=== PATIENT | male | born 1970 | race Caucasian/White ===

== ENCOUNTER → 2023-02-03 | Outpatient (CLI) | payer SELFPAY ==
--- NOTE | 2023-02-03 09:49 | ECHOD_ITS ---
Reason For Study: WHEEZING Procedure This was a 2D Doppler, Color Flow transthoracic echocardiogram. Exam performed in department. Left Ventricle Normal LV size. Mild concentric left ventricular hypertrophy. Left ventricular systolic function is normal. The estimated ejection fraction is 60 %. No regional wall motion abnormalities noted. Right Ventricle Normal RV size. Normal systolic function. Atria Normal left atrium. Normal right atrium. Mitral Valve Normal mitral valve. Tricuspid Valve Normal tricuspid valve. Mild tricuspid valve insufficiency. Pulmonary artery systolic pressure is 26 mmHg. Aortic Valve Normal aortic valve. Pulmonic Valve Normal pulmonic valve. Great Vessels Normal aortic root. The pulmonary artery is normal size. Normal inferior vena cava. Pericardium/Pleural No pericardial effusion. MMode/2D Measurements & Calculations LVIDd: 4.6 cm IVSd: 1.3 cm Ao root diam: 3.4 cm LVIDs: 3.3 cm LVPWd: 1.2 cm RVDd: 3.7 cm FS: 28.8 % LAV(MOD-bp): 49.4 ml LVAd ap4: 36.9 cm2 SV(MOD-sp4): 70.8 ml LAV(MOD-bp) Indexed: 23.0 ml/m2 LVLd ap4: 9.4 cm LAV(MOD-sp2): 49.4 ml EDV(MOD-sp4): 122.0 ml LAV(MOD-sp4): 49.1 ml EDV(sp4-el): 123.6 ml LVAs ap4: 21.3 cm2 LVLs ap4: 7.8 cm ESV(MOD-sp4): 51.2 ml ESV(sp4-el): 49.3 ml EF(MOD-sp4): 58.1 % EF(sp4-el): 60.1 % SV(sp4-el): 74.3 ml LA A4 area: 18.2 cm2 LA dimension(2D): 3.2 cm RA A4 area: 18.1 cm2 Time Measurements MV dec time: 0.22 sec Doppler Measurements & Calculations MV E max bon: 69.6 cm/sec Lat Peak E' Bon: 10.9 cm/sec Med Peak E' Bon: 10.3 cm/sec MV A max bon: 62.2 cm/sec E/E' lat: 6.4 E/E' med: 6.8 MV E/A: 1.1 Ao V2 max: 118.6 cm/sec LV V1 max: 98.7 cm/sec PA V2 max: 96.1 cm/sec Ao max P.6 mmHg LV V1 max P.9 mmHg TR max bon: 234.6 cm/sec TR max P.0 mmHg ECHO/Echo Complete Interpretation Summary Normal LV size. Left ventricular systolic function is normal. The estimated ejection fraction is 60 %. Mild concentric left ventricular hypertrophy. Pulmonary artery systolic pressure is 26 mmHg. Ordering Physician: Sri Wagner Referring Physician: Sri Wagner Performed By: Svetlana Serna RDCS
== END | disposition home or self-care (01) ==
PROVIDERS: PCP Nurse Practitioner Family; Referring Provider Nurse Practitioner Family; Visit Provider Nurse Practitioner Family
DX: R06.2 Wheezing (principal); I10 Essential (primary) hypertension
CPT/HCPCS: 93306

== ENCOUNTER 2023-03-08 08:25 | Emergency (ER) | payer OTHER, SELFPAY ==
[2023-03-08 08:26] VITALS: BP 211/138; PULSE 67; RESP 16; TEMP 36.1; O2SAT 96; BMI 32.9
--- NOTE | 2023-03-08 08:33 | EKG12_ITS ---
Test Reason : HTN Blood Pressure : / mmHG Vent. Rate : 056 BPM Atrial Rate : 056 BPM P-R Int : 154 ms QRS Dur : 102 ms QT Int : 446 ms P-R-T Axes : 035 006 034 degrees QTc Int : 430 ms Sinus bradycardia with marked sinus arrhythmia Minimal voltage criteria for LVH, may be normal variant ( Cotter product ) Borderline ECG Confirmed by ALBERTINA ZHOU, GIBRAN ([id number]), news editor PAT PUENTE ([id number]) on 03/17/2023 2:07:19 PM Referred By: Confirmed By:GIBRAN ENG MD
--- NOTE | 2023-03-08 08:33 | RAD_ITS ---
HISTORY: HTN. TECHNIQUE: XR Chest 1 View. COMPARISON: None. FINDINGS: CARDIOMEDIASTINAL BORDERS: Cardiac silhouette within normal limits in size. Tortuosity of the aorta. LUNGS: Radiographically clear. PLEURA: No pleural effusion or pneumothorax seen. OSSEOUS STRUCTURES: Cervical spinal fusion hardware noted. RAD/Chest 1 View (Portable) IMPRESSION: No acute cardiopulmonary process identified. Electronically Signed: Aylin Keller MD at 9:36 EST ,
[2023-03-08 08:59] LABS: Absolute Lymphocyte Count 1.31 X10^3/uL (0.83-4.51); Absolute Neutrophil Count 4.3 X10^3/uL (2.0-7.7); Basophil# 0.02 X10^3/uL; Basophil% 0.3 % (0-1); Eosinophil# 0.12 X10^3/uL; Eosinophils% 1.9 % (0-5); Hematocrit 45.1 % (40-54); Hemoglobin 15.3 g/dL (13.0-16.5); Lymphocyte # 1.31 X10^3/ul (0.83-4.51); Lymphocyte % 21.1 % (19-41); Mean Corp Hgb Conc 33.9 g/dL (32-36); Mean Corpuscular Hgb 28.4 pg (27.0-32.0); Mean Corpuscular Volume 83.7 fL (80-94); Mean Platelet Vol. 8.7 fl (6.2-12.0); Monocyte# 0.46 X10^3/uL; Monocyte% 7.4 % (0-10); NRBC Flagged by Analyzer 0 % (0-5); Neutrophil # 4.27 X10^3/uL (2.7-7.7); Platelet Count 176 K/mm3 (150-450); RBC Distribution Width CV 13.1 % (11.6-14.6); RBC Distribution Width SD 39.4 fl (35.1-43.9); Red Blood Count 5.39 M/mm3 (4.6-6.2); White Blood Count 6.2 K/mm3 (4.4-11.0)
[2023-03-08 09:09] LABS: Anion Gap 3 (5-15); BUN 14 mg/dL (7-18); BUN/Creat Ratio 16.1 RATIO (10-20); Chloride 104 mmol/L (98-107); Creatinine, Serum 0.87 mg/dL (0.70-1.30); EST Glomerular Filtration Rate 97 mL/min (>60); Est Glom Filt Rate - Afr Amer 118 mL/min (>60); Estimated Creatinine Clearance 99.32 ml/min; Glucose 113 mg/dL (74-106); Potassium 3.7 mmol/L (3.5-5.1); Sodium Level 137 mmol/L (136-145)
--- NOTE | 2023-03-08 09:24 | CT_ITS ---
HISTORY: Hypertensive urgency. TECHNIQUE: Multiple axial images were obtained of the head without intravenous contrast. A radiation dose optimization technique was used for this scan. 249 images. COMPARISON: None. FINDINGS: BRAIN PARENCHYMA: No significant attenuation abnormality. No acute intra-axial hemorrhage. CSF SPACES: Cerebral ventricles, cortical sulci, and other extra-axial CSF spaces within normal limits in size for age. No midline shift or other significant mass effect. No acute extra-axial hemorrhage. OTHER: Intact calvarium. No significant air fluid levels in the paranasal sinuses or mastoid air cells. Unremarkable orbits. CT/Brain/Head without Contrast IMPRESSION: No acute intracranial process identified. Electronically Signed: Aylin Keller MD at 10:14 EST ,
--- NOTE | 2023-03-08 09:25 | CT_ITS ---
HISTORY: Aortic dissection. TECHNIQUE: CTA chest, abdomen, and pelvis was obtained after the intravenous administration of 100 mL Isovue-370 with sagittal and coronal reconstructed 2-D/3-D MIP views. A radiation dose optimization technique was used for this scan. 1083 images. COMPARISON: XR same day. FINDINGS: Chest- CENTRAL AIRWAYS: Grossly patent. LUNGS: Clear. PLEURA: No pneumothorax or significant pleural effusion. HEART/PERICARDIUM: Heart within normal limits in size with coronary artery disease. No significant pericardial effusion. VESSELS: No aortic aneurysm or dissection flap. Nondiagnostic contrast bolus in the pulmonary arteries. MEDIASTINUM/HUNG: Small calcified left hilar lymph nodes. Right thyroid nodules measuring up to 1.7 cm. OSSEOUS STRUCTURES/CHEST WALL: Cervical spinal fusion hardware present. Osseous structures intact. Abdomen and pelvis- BOWEL: Tiny hiatal hernia. Bowel including appendix nondilated. No focal pericolonic inflammatory change. PERITONEUM: No free air or ascites. Mild mid mesenteric stranding with small lymph nodes. LIVER: Fatty infiltration. GALLBLADDER: Gallbladder present. SPLEEN/PANCREAS: Homogeneous and nonenlarged. KIDNEYS/ADRENAL GLANDS: Unremarkable. VESSELS: No abdominal aortic aneurysm or dissection flap. No significant stenosis of the celiac axis, superior or inferior mesenteric, or single bilateral renal arteries. Patent bilateral iliac arteries. PELVIC ORGANS: Underdistended bladder, limiting its evaluation. BODY WALL: Fat-containing right inguinal hernia. OSSEOUS STRUCTURES: Mild degenerative change with L4-S1 fusion hardware. CT/CTA Chst, Abd, Pel W and/or WO IMPRESSION: No evidence for aortic dissection or aneurysm. Right thyroid nodules measuring up to 1.7 cm; recommend ultrasound follow-up. Nonspecific mild mesenteric inflammation or mesenteric panniculitis. Hepatic steatosis. Electronically Signed: Aylin Keller MD at 10:22 EST ,
[2023-03-08] MEDS: hydrALAZINE 20 MG/ML Vial 10 MG IV ×2 (09:42→10:21)
[2023-03-08 09:47] LABS: Troponin-I HS 11 pg/mL (3.0-78.0)
[2023-03-08 09:54] LABS: Bacteria 0 SEEN /hpf (None Seen); Mucous, Urine 0 SEEN /hpf (<or=2+); Red Blood Cells-Urine 0 SEEN /hpf (0-5); Squamous Epithelial Cells - UA 0 SEEN /hpf (0-5); White Blood Cells 0 SEEN /hpf (0-5)
[2023-03-08 09:56] LABS: Color, Urine Yellow (Yellow); Glucose, Dipstick Normal (Normal); Ketone-Dipstick Negative (Negative); Leukocyte Esterase-Dipstick Negative /ul (Negative); Nitrite-Dipstick Negative (Negative); Occult Blood-Urine Negative /ul (Negative); Protein-Dipstick Negative (Negative); Specific Gravity, Urine 1.005 (1.002-1.030); Urine Bilirubin Dipstick Negative (Negative); Urine Clarity Clear (Clear); Urine Urobilinogen Normal (Normal)
[2023-03-08 10:07] VITALS: BP 201/120; PULSE 64; RESP 14; O2SAT 98
[2023-03-08 11:19] VITALS: BP 172/129; PULSE 54; RESP 12; O2SAT 98
--- NOTE | 2023-03-08 11:32 | EX.ED.DYSGE1 ---
HPI History of Present Illness Chief Complaint: Hypertension Informant: patient and spouse/S.O. Narrative Narrative: 52-year-old male presenting to the emergency room with chief complaint of hypertension. Patient states a little over a month ago he was started on losartan 50 mg for hypertension. He reports having some intermittent headaches. He notes intermittent lower extremity swelling. Patient describes the headache as generalized. No vision changes. No chest pain or shortness of breath. His father had hypertension as well as aortic dissection. He tells me that he saw his doctor about a week ago for continued high blood pressure and they ordered blood work but he did not fast and therefore rescheduled has not had it done yet. He reports that 6 years ago he had a surgery in [place] and when he returned home he was hypertensive but he got it under control with various herbal remedies. [facility] Medical History Hypertension Home Medications amlodipine 5 mg tablet 5 mg PO DAILY #30 tabs 03/08/23 [Rx Last Taken Unknown] losartan 100 mg tablet 100 mg PO DAILY #30 tabs 03/08/23 [Rx Last Taken Unknown] losartan 50 mg tablet (Cozaar) 50 mg PO .every evening 03/08/23 [History Last Taken Unknown] Allergy/AdvReac Type Severity Reaction Status Date / Time No Known Allergies Allergy Verified 03/08/23 08:25 Social History Smoking Status: Never smoker [facility] ED Constitutional Constitutional ED: Denies chills, fever(s) or weight loss Eyes Eyes: Denies blurry vision, change in vision or diplopia ENT ENT ED: Denies ear pain, rhinorrhea or sore throat Cardiovascular Cardiovascular: Denies chest pain, orthopnea, palpitations or racing heartbeat Respiratory/Chest Respiratory/Chest: Denies cough, dyspnea or orthopnea Gastrointestinal Gastrointestinal: Denies abdominal pain, diarrhea, nausea or vomiting Genitourinary Genitourinary ED: Denies dysuria, hematuria or urinary frequency Musculoskeletal Musculoskeletal: Denies arthralgias or myalgias Integumentary Denies abscess or rash Neurologic Neurologic: Reports headache(s); Denies weakness Psychiatric Psychiatric: Denies anxiety, depression, suicidal ideation or suicidal thoughts Endocrine Endocrinology: Denies polydipsia, polyphagia or polyuria Allergic/Immunologic Allergic/Immunologic ED: Denies mouth swelling, tongue swelling or urticaria EXAM Physical Exam Const Vital Signs: 03/08/23 08:26 03/08/23 10:07 03/08/23 11:19 Temperature 97.0 F L Temperature Source Temporal Pulse Rate 67 64 54 L Respiratory Rate 16 14 12 Blood Pressure 211/138 H 201/120 H 172/129 H Blood Pressure Mean 162 147 143 Pulse Ox 96 98 98 Oxygen Delivery Method Room Air Room Air Room Air 03/08/23 11:45 Temperature Temperature Source Pulse Rate 67 Respiratory Rate Blood Pressure 176/90 H Blood Pressure Mean 118 Pulse Ox Oxygen Delivery Method Positive well nourished and well developed General Appearance ED: well developed HEENT Reports normocephalic, head/scalp atraumatic and moist mucous membranes Eyes PERRL and EOMs intact bilaterally Neck no lymphadenopathy, supple and no JVD Resp normal respiratory effort and clear to auscultation bilaterally Cardio regular rate, regular rhythm and no murmurs GI normal to inspection, nondistended, normoactive bowel sounds and non-tender Palpation: soft Back/Spine no CVA tenderness and normal ROM Extremity normal to inspection General Extremety ED: Negative for edema General Extremity: Negative for edema Neuro oriented x3 and CN's II-XII intact bilaterally Sensorium / Orientation: alert Motor Exam: strength 5/5 throughout Psych mental status grossly normal Mood & Affect: Negative for depressed or tearful Skin no rashes or lesions noted and no wounds MDM MDM MDM Narrative Medical decision making narrative: CBC is normal. Creatinine 0.87 with a troponin of 11. Urinalysis shows no proteinuria. My independent interpretation of the chest x-ray is no acute process. CT of the brain is negative for acute. CT of the chest abdomen pelvis is negative for dissection/aneurysm. The patient received several doses of hydralazine and his blood pressure has steadily come down. Currently 170/90. He is resting more comfortably. His headache is improved. Patient other than hypertensive and headache is not showing any symptoms of endorgan damage. No proteinuria. I am going to start him on amlodipine 5 mg and increase his losartan to 100 mg daily. I would advise him to have early follow-up with primary care. History & Record Review Discussion w/independent historian: Patient and Family Lab Data Attestation: I reviewed the patient's lab results. Labs: Laboratory Results - last 24 hr 03/08/23 03/08/23 08:50 09:45 WBC 6.2 RBC 5.39 Hgb 15.3 Hct 45.1 MCV 83.7 MCH 28.4 MCHC 33.9 RDW Std Deviation 39.4 RDW Coeff of Joann 13.1 Plt Count 176 MPV 8.7 Immature Gran % (Auto) 0.300 Neut % (Auto) 69.0 Lymph % (Auto) 21.1 [place] % (Auto) 7.4 Eos % (Auto) 1.9 Baso % (Auto) 0.3 Absolute Neuts (auto) 4.3 Absolute Lymphs (auto) 1.31 Nucleated RBC % 0 Sodium 137 Potassium 3.7 Chloride 104 Carbon Dioxide 30.0 Anion Gap 3 L BUN 14 Creatinine 0.87 Estim Creat Clear Calc 99.32 Est GFR (MDRD) Af Amer 118 Est GFR (MDRD) Non-Af 97 BUN/Creatinine Ratio 16.1 Glucose 113 H Calcium 9.0 Troponin I High Sens 11 Urine Color Yellow Urine Clarity Clear Urine pH 7.0 Ur Specific [place] 1.005 Urine Protein Negative Urine Glucose (UA) Normal Urine Ketones Negative Urine Occult Blood Negative Urine Nitrite Negative Urine Bilirubin Negative Urine Urobilinogen Normal Ur Leukocyte Esterase Negative Urine RBC 0 SEEN Urine WBC 0 SEEN Ur Squamous Epith Cells 0 SEEN Urine Bacteria 0 SEEN Urine Mucus 0 SEEN Radiography Diagnostic Testing: Clinical Impression(s) from Imaging Studies Chest X-Ray 03/08/23 08:33 IMPRESSION: No acute cardiopulmonary process identified. Electronically Signed: Aylin Keller MD at 9:36 EST , Brain CT 03/08/23 09:24 IMPRESSION: No acute intracranial process identified. Electronically Signed: Aylin Keller MD at 10:14 EST , Chest/Abdomen/Pelvis CTA 03/08/23 09:25 IMPRESSION: No evidence for aortic dissection or aneurysm. Right thyroid nodules measuring up to 1.7 cm; recommend ultrasound follow-up. Nonspecific mild mesenteric inflammation or mesenteric panniculitis. Hepatic steatosis. Electronically Signed: Aylin Keller MD at 10:22 EST , EKG Initial EKG: Attestation: I personally reviewed and interpreted this EKG as follows: Comments: Sinus bradycardia with a ventricular rate of 56 bpm. No features of ACS noted Discharge Plan Triage Chief Complaint: Hypertension ED Provider: Marco Molina Dx/Rx/DC Orders Clinical Impression: Hypertensive urgency, Headache Instructions: ED High Blood Pressure Hypertension Prescriptions: New losartan 100 mg tablet 100 mg PO DAILY Qty: 30 0RF amlodipine 5 mg tablet 5 mg PO DAILY Qty: 30 0RF No Action losartan [Cozaar] 50 mg tablet 50 mg PO .every evening Primary Care Provider: Care Physician,No Primary Referrals: Care Physician,No Primary [Primary Care Provider] - Disposition Disposition: Home, Self Care
[2023-03-08 11:45] VITALS: BP 176/90; PULSE 67
[2023-03-08] MEDS: Acetaminophen 325 MG Tablet 650 MG PO (12:56)
[2023-03-08] MEDS: amLODIPine 5 MG Tablet PO (12:58)
[2023-03-08 13:34] VITALS: BP 189/117; PULSE 72; RESP 16; O2SAT 97
== END 2023-03-08 13:36 | disposition home or self-care (01) ==
PROVIDERS: Emergency Provider Emergency Medicine; Visit Provider Emergency Medicine
DX: I16.0 Hypertensive urgency (principal); R51.9 Headache, unspecified; I10 Essential (primary) hypertension; Z79.899 Other long term (current) drug therapy
CPT/HCPCS: 70450; 71045; 71275; 74174; 80048; 81001; 84484; 85025; 93005; 96374; 96376; 99283; Q9967; A4216